=== PATIENT | male | born 1950 | race Caucasian/White ===

== ENCOUNTER → 2018-09-23 | Outpatient (CLI) | payer OTHER | LOC: RAD 12:23 | DX: R05 Cough (principal); M25.78 Osteophyte, vertebrae ==

== ENCOUNTER → 2019-01-15 | Outpatient (CLI) | payer OTHER | LOC: RAD 12:57 | DX: R06.00 Dyspnea, unspecified (principal); M25.78 Osteophyte, vertebrae ==

== ENCOUNTER → 2019-06-18 | Outpatient (CLI) | payer OTHER ==
[2019-06-18 15:48] LABS: ABSOLUTE NEUTROPHILS 9.2 thou/uL (1.4-8.2); BASOPHILS 0.5 % (0.0-2.0); EOSINOPHILS 0.2 % (0.0-3.0); HEMATOCRIT 46.1 % (42.0-52.0); HEMOGLOBIN 15.3 gm/dL (14.0-18.0); LYMPHOCYTES 7.8 % (24.0-44.0); MCH 32.3 pg (26.0-34.0); MCHC 33.3 g/dL (28.0-37.0); MCV 96.9 fL (80.0-100.0); MONOCYTES 2.9 % (1.0-8.0); PLATELET COUNT 287 thou/uL (150-400); POLYS 88.6 % (36.0-66.0); RBC 4.75 mil/uL (4.50-6.00); RDW 13.3 % (10.5-14.5); WBC 10.4 thou/uL (4.0-11.0)
[2019-06-18 15:56] LABS: CALCIUM 9.7 mg/dL (8.5-10.1); POTASSIUM 5.2 mmol/L (3.5-5.1)
== END ==
LOC: RAD 15:10
PROVIDERS: Pediatrics
DX: J44.9 Chronic obstructive pulmonary disease, unspecified (principal); J45.40 Moderate persistent asthma, uncomplicated; J98.11 Atelectasis; Q67.6 Pectus excavatum; Z88.8 Allergy status to other drugs, medicaments and biological substances; Z91.013 Allergy to seafood

== ENCOUNTER → 2019-12-22 | Outpatient (CLI) | payer OTHER | LOC: RAD 12:38 | DX: J44.9 Chronic obstructive pulmonary disease, unspecified (principal) ==